=== PATIENT | male | born 1940 | race Caucasian/White ===

== ENCOUNTER → 2017-10-17 | Day surgery (SDC) | payer OTHER ==
[2017-10-11 14:55] LABS: BASOPHILS # (AUTO) 0.1 (0.0-0.1); BASOPHILS % 0.8 % (0.0-1.0); EOSINOPHILS # (AUTO) 0.4 (0.0-0.4); EOSINOPHILS % 4.9 % (0.0-6.0); HEMATOCRIT 39.2 % (38.2-49.6); HEMOGLOBIN 13.2 g/dL (14.0-18.0); LYMPHOCYTES # (AUTO) 2.4 (1.0-3.2); LYMPHOCYTES % 30.8 % (18.0-39.1); MEAN CORPUSCULAR HEMOGLOBIN 29.6 pg (28-32); MEAN CORPUSCULAR HGB CONC 33.7 g/dL (31-35); MEAN CORPUSCULAR VOLUME 87.9 fL (81-99); MONOCYTES # (AUTO) 0.7 (0.2-0.8); MONOCYTES % 9.3 % (4.4-11.3); NEUTROPHILS # (AUTO) 4.2 (2.1-6.9); NEUTROPHILS % 53.8 % (38.7-80.0); PLATELET COUNT 220 x10e3/uL (140-360); RED BLOOD COUNT 4.46 x10e6/uL (4.3-5.7); RED CELL DISTRIBUTION WIDTH 14.4 % (11.7-14.4)
[~2017-10-17] MED LIST: ALLOPURINOL300 MG PO; ASPIRIN CHEW81 MG PO; CENTRUM SILVER1 EAC3 PO; COMBIGAN EYE DRO5 ML OP; FENTANYL CITRATE/PF 100MCG/2 ML INJ ONE; FISH OIL 1,0001 EAC2 PO; GABAPENTIN400 MG PO; HYDROCODON-ACE1 EA11 PO; LACTULOSE20 GM/30 M PO; METAMUCIL POWD174 GM PO; METFORMIN HCL500 MG PO; MIDAZOLAM HCL 2 MG/2 ML VIAL ONE; NEXIUM40 MG PO; PANTOPRAZOLE SO40 MG PO; PROPOFOL IV EMULSION 10 MG/ML 50 ML VIAL ONE; SLEEP AID25 M1 PO; TIZANIDINE HCL4 M1 PO; TRAMADOL-ACETAMI1 EA PO; ZOCOR20 MG PO; [UNRECOGNIZED DRUG - OTHER]
== END | disposition home or self-care (01) ==
LOC: OR 08:25
PROVIDERS: ATTEND Internal Medicine Gastroenterology
DX: Z12.11 Encounter for screening for malignant neoplasm of colon (principal); Z86.010 Personal history of colon polyps; M19.90 Unspecified osteoarthritis, unspecified site; H91.90 Unspecified hearing loss, unspecified ear; E11.9 Type 2 diabetes mellitus without complications; Z01.810 Encounter for preprocedural cardiovascular examination; Z01.812 Encounter for preprocedural laboratory examination; Z79.82 Long term (current) use of aspirin; E78.5 Hyperlipidemia, unspecified; Z79.84 Long term (current) use of oral hypoglycemic drugs; Z68.32 Body mass index [BMI] 32.0-32.9, adult
CPT/HCPCS: 36415 ×2; 82948; 85025; 93005; G0104; J2250; 45378

== ENCOUNTER → 2017-10-31 | Day surgery (SDC) | payer OTHER | END | disposition home or self-care (01) | LOC: OR 10:29 | PROVIDERS: ATTEND Internal Medicine Gastroenterology | DX: D12.3 Benign neoplasm of transverse colon (principal); D12.5 Benign neoplasm of sigmoid colon; K63.5 Polyp of colon; K57.30 Diverticulosis of large intestine without perforation or abscess without bleeding; K64.8 Other hemorrhoids; K21.9 Gastro-esophageal reflux disease without esophagitis; E78.5 Hyperlipidemia, unspecified; E11.40 Type 2 diabetes mellitus with diabetic neuropathy, unspecified; Z79.84 Long term (current) use of oral hypoglycemic drugs; Z86.73 Personal history of transient ischemic attack (TIA), and cerebral infarction without residual deficits; Z88.1 Allergy status to other antibiotic agents; Z91.09 Other allergy status, other than to drugs and biological substances | CPT/HCPCS: 36415; 45384; 45385; 82948; J2250; 45378 ==

== ENCOUNTER 2018-06-18 05:23 | Observation (INO) | payer MEDICARE, OTHER ==
[2018-06-15 10:52] LABS: BASOPHILS # (AUTO) 0.1 (0.0-0.1); BASOPHILS % 0.8 % (0.0-1.0); EOSINOPHILS # (AUTO) 0.3 (0.0-0.4); EOSINOPHILS % 3.8 % (0.0-6.0); HEMATOCRIT 41.9 % (38.2-49.6); HEMOGLOBIN 14.2 g/dL (14.0-18.0); LYMPHOCYTES # (AUTO) 1.9 (1.0-3.2); LYMPHOCYTES % 26.5 % (18.0-39.1); MEAN CORPUSCULAR HEMOGLOBIN 29.8 pg (28-32); MEAN CORPUSCULAR HGB CONC 33.9 g/dL (31-35); MONOCYTES # (AUTO) 0.6 (0.2-0.8); MONOCYTES % 8.3 % (4.4-11.3); NEUTROPHILS # (AUTO) 4.2 (2.1-6.9); NEUTROPHILS % 59.9 % (38.7-80.0); PLATELET COUNT 235 x10e3/uL (140-360); RED BLOOD COUNT 4.76 x10e6/uL (4.3-5.7); RED CELL DISTRIBUTION WIDTH 14.4 % (11.7-14.4)
[2018-06-15 11:12] LABS: ANION GAP 14.8 mmol/L (8-16); BLOOD UREA NITROGEN 13 mg/dL (7-26); BUN/CREATININE RATIO 15 (6-25); CALCIUM 9.4 mg/dL (8.4-10.2); CARBON DIOXIDE 25 mmol/L (22-29); CHLORIDE 99 mmol/L (98-107); CREATININE, SERUM 0.85 mg/dL (0.72-1.25); EST GLOMERULAR FILTRATION RATE > 60 ML/MIN (60-); GLUCOSE 202 mg/dL (74-118); POTASSIUM 3.8 mmol/L (3.5-5.1); SODIUM 135 mmol/L (136-145)
--- NOTE | 2018-06-15 11:29 | Diagnostic Imaging Report ---
EXAMINATION: PA and lateral views of the chest. COMPARISON: None CLINICAL HISTORY: Preoperative evaluation, knee surgery DISCUSSION: Lines/tubes: None. Lungs: The lungs are well inflated and clear. No pneumonia or pulmonary edema. Pleura: No pleural effusion or pneumothorax. Heart and mediastinum: The cardiomediastinal silhouette is normal. Bones and soft tissues: No acute bony abnormalities. IMPRESSION: No acute cardiopulmonary abnormalities. Signed by: Dr. Catrachito Haq M.D. on 06/15/2018 11:25 AM
[~2018-06-18] VITALS: Ht 190.5 cm; Wt 124.3 kg
[~2018-06-18 05:23] MED LIST changes: +ALLOPURINOL PO; +ARICEPT5 MG PO; +ASPIR 8181 MG; -FENTANYL CITRATE/PF 100MCG/2 ML INJ ONE; +LASIX20 MG PO; -MIDAZOLAM HCL 2 MG/2 ML VIAL ONE; +MIRALAX; +NAPROXEN PO; +NIGHTTIME SLEEP50 M1; -PROPOFOL IV EMULSION 10 MG/ML 50 ML VIAL ONE; +SIMVASTATIN20 MG PO; +ULTRACET TABLE1 EACH; +[UNRECOGNIZED DRUG - OTHER] PO
--- OUTSIDE RECORDS SUMMARY | 2018-06-18 05:28 | XMS REPORT ---
Author [facility] Address Unknown Phone Unavailable Care Team Providers Care Heel Painter Name Role Phone STEPHANIE ARANA Unavailable Unavailable Problems This patient has no known problems. Allergies, Adverse Reactions, Alerts This patient has no known allergies or adverse reactions. Medications This patient has no known medications. Results Test Description Test Time Test Comments Text Results Atomic Results Result Comments CHEST 2 VIEWS 2018-06-15 11:24:00 [facility] [address] [address] Patient Name: MONA SUÁREZ MR #: [id number] : 1940 Age/Sex: 77/M Req #: [id number] Adm Physician: Ordered by: STEPHANIE ARANA MD Report #: [id number] Location: OR Room/Bed: Procedure: [id number] DX/CHEST 2 VIEWS Exam Date: 06/15/18 Exam Time: 1110 REPORT STATUS: Signed EXAMINATION: PA and lateral views of the chest. COMPAR NANCI: None CLINICAL HISTORY: Preoperative evaluation, knee surgery DISCUSSION: Lines/tubes: None. Lungs: The lungs are well inflated and clear. No pneumonia or pulmonary edema. Pleura: No pleural effusion or pneumothorax. Heart and mediastinum: The cardiomediastinal silhouette is normal. Bones and soft tissues: No acute bony abnormalities. IMPRESSION: No acute cardiopulmonary abnormalities. Signed by: Dr. Benita White M.D. on 06/15/2018 11:25 AM Dictated By: BENITA WHITE MD 1125 Transcribed By: DAYSI on 06/15/18 1125 COPY TO: STEPHANIE ARANA MD
[2018-06-18] MEDS ORDERED: CELECOXIB 200 MG CAP ONE (06:09)
[2018-06-18] MEDS ORDERED: DEXAMETHASONE SOD PHOS 10 MG/1 ML VIAL ONE (06:09)
[2018-06-18] MEDS ORDERED: GABAPENTIN 300 MG CAP ONE (06:10)
[2018-06-18] MEDS ORDERED: CEFAZOLIN SOD 2 GM/D5W 50ML 50 ML IV ONE (06:10)
[2018-06-18] MEDS ORDERED: TRANEXAMIC ACID 1,000 MG/10 ML ML ONE (06:16)
[2018-06-18] MEDS ORDERED: BACITRACIN 50,000 UNIT VIAL ONE (06:16)
[2018-06-18] MEDS ORDERED: FENTANYL CITRATE/PF 100MCG/2 ML INJ ONE ×2 (07:08→10:06)
[2018-06-18] MEDS ORDERED: ROPIVACAINE 246.25 MG, EPINEPHRINE HCL 1:1000 1ML 0.5 MG, CLONIDINE HCL 0.08 MG, KETORO... INJ ONE ×5 (07:30)
[2018-06-18] MEDS ORDERED: VANCOMYCIN HCL 500 MG ONE (08:12)
[2018-06-18] MEDS ORDERED: SODIUM CHLORIDE 0.9% 500ML 500 ML ONE (08:13)
[2018-06-18] MEDS ORDERED: SODIUM CHLORIDE 0.9% 1000ML 1,000 ML IV SCH (09:05)
[2018-06-18] MEDS ORDERED: ACETAMINOPHEN 650 MG SUPP PR PRN (09:15)
[2018-06-18] MEDS ORDERED: DOCUSATE SODIUM 100 MG CAP PO PRN (09:15)
[2018-06-18] MEDS ORDERED: ONDANSETRON HCL INJ 2MG/ML 2ML 2 MG/ML VIAL IV PRN (09:15)
[2018-06-18] MEDS ORDERED: DIPHENHYDRAMINE HCL INJ 50 MG/ML VIAL IM/IV PRN (09:15)
[2018-06-18] MEDS ORDERED: PROMETHAZINE HCL (IM) 25 MG/ML VIAL IM PRN (09:15)
[2018-06-18] MEDS ORDERED: HYDROCODONE/APAP 5MG-325MG TAB PO PRN (09:15)
[2018-06-18] MEDS ORDERED: MEPERIDINE HCL INJ 25 MG/ML VIAL ONE (09:23)
--- NOTE | 2018-06-18 10:13 | Diagnostic Imaging Report ---
Right knee radiographs- 2 views. History: Post operative radiographs status post right knee surgery. Findings: Portable radiographs. Status post total right knee arthroplasty with prosthetic components in anatomic alignment. Overlying subcutaneous emphysema and surgical skin issac are present. Knee joint effusion with air fluid level. IMPRESSION: Status post right total knee arthroplasty in anatomic position with post operative findings. Signed by: Dr. Odilon Cronin MD on 06/18/2018 10:10 AM
--- NOTE | 2018-06-18 10:13 | Operative Report ---
DATE OF PROCEDURE: June 18, 2018 PATIENT COORDINATOR FRONT DESK: Thomas Barrett PA-C The patient was brought to the operating room for induction of anesthesia. Throughout this case, my PA's assistance was necessary for retraction of soft tissue and positioning of the extremity. This allows for efficient and technically successful execution of the operation and is considered medically necessary. PREOPERATIVE DIAGNOSIS: Osteoarthritis, right knee. POSTOPERATIVE DIAGNOSIS: Osteoarthritis, right knee. PROCEDURE: Right total knee arthroplasty. INDICATIONS: The patient is a 77-year-old gentleman who has long-standing osteoarthritis of his right knee. He has failed conservative management and would now like to proceed with a right total knee replacement. The risks and benefits of the procedure have been discussed at length. The added challenges due to his size and weight of 270 pounds have been explained. He states he understands and wishes to proceed. DESCRIPTION OF PROCEDURE: The patient brought to the operating room and placed under general anesthetic. He received a regional block, prophylactic antibiotics and tranexamic acid in the holding area. His right lower extremity was prepped and draped in a sterile manner. A preoperative time out was performed. An anterior approach with a medial parapatellar arthrotomy was performed. A large joint effusion was evacuated from the knee. Soft-tissue releases were performed to bring the knee up into flexion with the patella everted. The knee was quite tight. He had an approximate 5-degree flexion contracture prior to the surgery. Marginal osteophytes and meniscal remnants were removed. The cruciate ligaments were sacrificed. A [employer] posterior stabilized knee system was used throughout the case. Once the proximal tibia was adequately exposed, an extramedullary cutting guide was used to resect the proximal tibia. The tibial baseplate was a size number 7. The central fin punch was impacted, and attention was directed towards the distal femur. An intramedullary cutting guide was used to resect the distal femur in 6 degrees of valgus and rotation referencing off of a combination of landmarks including [place] line, the epicondylar axis and the posterior condyles. The femoral component was also a size number 7. The anterior, posterior and notch cuts were made. Trial reductions were performed. A 9-mm posterior stabilized tibial insert provided appropriate soft-tissue balancing in full extension and 90 degrees of flexion. The patella was resurfaced with a 35-mm x 9-mm patellar button. The thickness was checked before and after and was right at 26 mm. Patellar tracking remained somewhat laterally subluxed. A lateral retinacular release was necessary. This improved tracking dramatically. The trial implants were then all removed. A 100 mL premixed pericapsular FLOR injection was placed into the surrounding soft tissue. The knee was thoroughly irrigated with a shower-tip pulsatile lavage and a spray bottle with polymyxin and vancomycin spray. The components were cemented into place using a single mix of high-viscosity Simplex cement preloaded with antibiotics. Care was taken to remove all extravasated cement. The wound was further irrigated with a shower-tip pulsatile lavage while the cement cured. The arthrotomy was then closed with interrupted #1 Ethibond. The knee was put through flexion and extension to ensure a secure closure. The skin was closed with subcuticular Vicryl and issac. A sterile bandage was applied. The patient was extubated and transported to the recovery room in stable condition. Blood loss was minimal. All needle and sponge counts were correct. Job#: [id number]
[2018-06-18] MEDS: KETOROLAC TROMETHAMINE 30 MG/ML VIAL IV PRN (10:55)
[2018-06-18] MEDS ORDERED: KETOROLAC TROMETHAMINE 30 MG/ML VIAL ONE (10:55)
[2018-06-18] MEDS ORDERED: MORPHINE SULFATE INJ 4 MG/ML INJ 1ML ONE (11:07)
[2018-06-18] MEDS ORDERED: HYDROMORPHONE 2MG/ML 2 MG/ML ML ONE (11:26)
[2018-06-18] MEDS ORDERED: ACETAMINOPHEN 1000 MG/100 ML IV SCH (12:00)
[2018-06-18 13:02] VITALS: BP 180/79
[2018-06-18 14:03] VITALS: BP 184/74
[2018-06-18] MEDS: CEFAZOLIN SOD 1 GM/NS 50ML 50 ML IV SCH ×2 (15:00→22:00)
[2018-06-18] MEDS: ASPIRIN 325 MG TAB PO SCH (16:45)
[2018-06-18] MEDS: CELECOXIB 200 MG CAP PO SCH (16:45)
[2018-06-18] MEDS ORDERED: CELECOXIB 100 MG CAP PO SCH (17:00)
[2018-06-18] MEDS ORDERED: LIDOCAINE HCL 2% LOCAL INJ 5 ML SDV VIAL INJ ONE (18:10)
[2018-06-18] MEDS ORDERED: SEVOFLURANE INHAL SOLN 250 ML PEN BTL ONE (18:10)
[2018-06-18] MEDS ORDERED: ONDANSETRON HCL INJ 2MG/ML 2ML 2 MG/ML VIAL ONE (18:10)
[2018-06-18] MEDS ORDERED: HYDRALAZINE HCL 20 MG/ML VIAL ONE (18:10)
[2018-06-18] MEDS ORDERED: PROPOFOL IV EMULSION 10 MG/ML 20 ML VIAL ONE (18:10)
[2018-06-18] MEDS ORDERED: LIDOCAINE HCL 2% JELLY 5 ML TUBE ONE (18:10)
--- NOTE | 2018-06-18 18:22 | NUR ---
DR. BRENNAN ANSWERING SERVICE CALLED FOR MEDICAL MANAGEMENT CONSULTATION AND PRN ORDERS FOR BP.
[2018-06-18] MEDS ORDERED: TIZANIDINE HCL 4 MG TAB PO PRN (18:45)
[2018-06-18] MEDS ORDERED: LIDOCAINE 2%/ EPINEPHRINE 20ML MDV ONE (18:47)
[2018-06-18] MEDS ORDERED: ROPIVACAINE 0.5% 5 MG/ML 30 ML SDV ONE (18:47)
[2018-06-18 20:00] VITALS: BP 134/60
[2018-06-18] MEDS ORDERED: ZOLPIDEM TARTRATE 5 MG TAB PO PRN (21:00)
[2018-06-18] MEDS: ACETAMINOPHEN 1000 MG/100 ML IV SCH (21:45)
[2018-06-18] MEDS: BRIMONIDINE/TIMOLOL (OPTH SOLN 5 ML DRPETTE OP SCH (22:00)
[2018-06-18] MEDS: SIMVASTATIN 20 MG TAB PO SCH (22:00)
[2018-06-18] MEDS: GABAPENTIN 400 MG CAP PO SCH (22:00)
[2018-06-19] VITALS: BP 120/51
[2018-06-19] MEDS: ACETAMINOPHEN 1000 MG/100 ML IV SCH ×2 (03:00→05:40)
[2018-06-19 04:00] VITALS: BP 139/60
--- NOTE | 2018-06-19 05:45 | NUR ---
ON CPM 60 AT THIS TIME.
[2018-06-19] MEDS: CEFAZOLIN SOD 1 GM/NS 50ML 50 ML IV SCH (06:01)
[2018-06-19 06:31] LABS: HEMATOCRIT 32.9 % (38.2-49.6); HEMOGLOBIN 11.1 g/dL (14.0-18.0)
--- NOTE | 2018-06-19 07:18 | NUR ---
Rcvd patient in report this am. Patient is asleep in bed at this time. Patient in CPM. NO c/o pain
[2018-06-19 08:00] VITALS: BP 166/73
[2018-06-19] MEDS: PANTOPRAZOLE SOD 40 MG TABEC PO SCH ×2 (08:23→20:30)
[2018-06-19] MEDS: GABAPENTIN 400 MG CAP PO SCH ×4 (08:24→20:30)
[2018-06-19] MEDS: ASPIRIN 325 MG TAB PO SCH ×2 (08:24→17:32)
[2018-06-19] MEDS: CELECOXIB 200 MG CAP PO SCH ×2 (08:24→17:32)
[2018-06-19] MEDS: METFORMIN HCL 500 MG TAB PO SCH ×2 (08:24→17:32)
[2018-06-19] MEDS: FUROSEMIDE 20 MG TAB PO SCH (08:24)
[2018-06-19] MEDS: DONEPEZIL HCL 5 MG TAB PO SCH (08:24)
[2018-06-19] MEDS ORDERED: ASPIRIN 81 MG CHEW TAB PO SCH (09:00)
[2018-06-19] MEDS: BRIMONIDINE/TIMOLOL (OPTH SOLN 5 ML DRPETTE OP SCH ×2 (09:01→20:30)
[2018-06-19] MEDS: HYDROCODONE/APAP 7.5MG-325MG 1 EA TAB PO PRN ×2 (09:01→13:14)
[2018-06-19] MEDS ORDERED: ACETAMINOPHEN 1000 MG/100 ML IV PRN (09:15)
[2018-06-19] MEDS ORDERED: ASPIRIN325 MG PO (10:07)
[2018-06-19] MEDS: KETOROLAC TROMETHAMINE 30 MG/ML VIAL IV PRN ×2 (10:51→20:35)
--- NOTE | 2018-06-19 11:19 | NUR ---
CASE MANAGEMENT INITIAL ASSESSMENT Operations Technician to bedside to discuss plan of care with patient/family. CM/SW role and care transitions discussed. Anticipated discharge plan discussed along with duration of care. CM/SW discussed patients right to make decisions in care. CM/SW work hours given. Patient lives: with [place] Admit/Transfer: from PACU; came for planned procedure Hospital/ER visits since last admit: none POA/Emergency contact: [place] Alcocer [phone] (cell), (home) Current/Previous Home Health: none PCP/Follow-up Care: Dr. Powell - PCP; has follow up with Dr. Adler (ortho) in 1 week Current/Previous DME: none; was independent Medications (referring to index hospitalization or the first time you were in the hospital) a. Were changes made in your medications when you were in the hospital on [date of index hospitalization]? n/a b. Did you understand the changes? n/a c. Were you able to obtain your new medications right away? n/a d. Were you able to take your medications like the doctor wanted you to? n/a e. Did the hospital give you an accurate, easy to understand list of medications when you left? n/a Scale of 1-10 how comfortable does patient feel with disease management in outpatient settin Other Services: none Employment Status: retired Areas of Concerns: knee replacement; weak, does not think he is able to go home yet. Pt stated it took 3 people to assist him up today. Referral Needs: home health Education Needs: medical management, physical therapy IMM/HANEY given and signed (if applicable): LYNDON explained to pt. He verbalized understanding. Signed copy in chart. Copy to pt. Goal for discharge: Home CM/SW left business card at the bedside with contact information. Name and number was also written on the patients whiteboard. Patient verbalized understanding of discussion. CM will follow-up with ongoing discharge and transition of care needs. DC plans pre-arranged by Dr. Adler's office as follows: [facility] - P [phone], F [phone]. DME with [facility] - P [phone]. Spoke with Lyndon in office. She stated that [facility] has been approved for DME. [employer] who coordinates delivery will contact pt's for delivery of CPM and 3-in-1 commode. Choice letter was obtained for both companies. Signed copy in chart. Copy to pt.
--- NOTE | 2018-06-19 11:30 | NUR ---
Spoke with pt's nurse AUSTIN Day, who stated that pt is unsafe for discharge at this time. She is waiting to hear back from Dr. Adler.
[2018-06-19 12:19] VITALS: BP_SYST 166; BP_SYST 176; BP_DIAS 73
--- NOTE | 2018-06-19 14:00 | NUR ---
Spoke with Dr. Adler regarding patient transferring and being unsafe today to discharge. MD agreed to keep the patient another day and reassess tomorrow
--- NOTE | 2018-06-19 14:05 | NUR ---
Visit made by the Spiritual Care Department Pastoral Visitor, Sissy Fink. PV provided pastoral presence, prayer, hospitality, and supportive listening. Pastoral Visitor informed pt/family of the scope of Health Insurance Agent Services and availability. SANDHYA BERGER Grinder Set Up Operator Surface Spiritual Care Department O: [phone] Pager: [phone] ([phone] number calling from)
--- NOTE | 2018-06-19 16:09 | NUR ---
Patient placed in CPM at this time at 65 degrees. Patient tolerating well at this time.
[2018-06-19 17:06] VITALS: BP 188/77
[2018-06-19 20:00] VITALS: BP 186/77
[2018-06-19] MEDS: SIMVASTATIN 20 MG TAB PO SCH (21:00)
[2018-06-20] VITALS (7 sets, daily range): BP systolic 145–198; BP diastolic 63–79
--- NOTE | 2018-06-20 05:46 | NUR ---
PLACED ON CMP 70 AT THIS TIME.
[2018-06-20 06:29] LABS: HEMATOCRIT 33.1 % (38.2-49.6); HEMOGLOBIN 10.8 g/dL (14.0-18.0)
[2018-06-20] MEDS: BRIMONIDINE/TIMOLOL (OPTH SOLN 5 ML DRPETTE OP SCH ×2 (08:47→21:08)
[2018-06-20] MEDS: METFORMIN HCL 500 MG TAB PO SCH ×2 (08:47→18:29)
[2018-06-20] MEDS: DONEPEZIL HCL 5 MG TAB PO SCH (08:48)
[2018-06-20] MEDS: ASPIRIN 325 MG TAB PO SCH ×2 (08:49→18:29)
[2018-06-20] MEDS: CELECOXIB 200 MG CAP PO SCH ×2 (08:49→18:29)
[2018-06-20] MEDS: GABAPENTIN 400 MG CAP PO SCH ×4 (08:50→21:08)
[2018-06-20] MEDS: FUROSEMIDE 20 MG TAB PO SCH (08:50)
[2018-06-20] MEDS: PANTOPRAZOLE SOD 40 MG TABEC PO SCH (08:51)
--- NOTE | 2018-06-20 11:00 | NUR ---
Pt cleared to discharge home for ortho standpoint. Pt was given RW from hospital. CM called and spoke to Veronika at [facility]. Informed her of discharge today. She is going to check on auth status and call me back. Clinical faxed to [facility]. P [phone], F [phone]. Also called [facility] and informed Lyndon that pt is discharging today. [employer] will reach out to pt's for delivery of CPM and 3-in-1 commode.
--- NOTE | 2018-06-20 13:38 | NUR ---
Spoke with Veronika at [facility]. Stated auth is good to go. They will be out to see pt tomorrow for therapy.
[2018-06-20] MEDS ORDERED: MOBIC7.5 MG PO (15:30)
[2018-06-20] MEDS ORDERED: SENNA LAXATIVE1 EACH PO (15:32)
[2018-06-20] MEDS ORDERED: NORCO 7.5-3251 EACH PO (15:33)
--- NOTE | 2018-06-20 16:05 | NUR ---
PATIENT'S FAMILY VOICED CONCERNS REGARDING THE PATIENT BEING ABLE TO GET UP, THEY STATED THAT THE PATIENT'S IS UNABLE TO HELP THE PATIENT OUT OF BED OR A CHAIR, HE CAN NOT GO HOME, SPOKE TO DEBRA THE ORTHOPEDIC PA FOR DR. ARANA, HE STATED THAT [facility] IS UNSAFE DUE TO INFECTION RISK, NOTIFIED THE FAMILY OF THE PHYSICIAN ACCOUNTING BOOKKEEPER'S RESPONSE, ATTEMPTED TO GET THE PATIENT TO STAND TO TRANSFER TO WHEELCHAIR, PATIENT WAS UNABLE TO STAND TO TRANSFER TO THE WHEELCHAIR, CALL DR. ARANA AT TIME 1648, DR. ARANA STATED THAT HE WILL COME SEE THE PATIENT.
--- NOTE | 2018-06-20 17:20 | NUR ---
DR ARANA AT BEDSIDE SPEAKING WITH PATIENT AND FAMILY RE: DISCHARGE, PT INFORMED MD " HE FEELS HE HAS NEW ONSET OF WEAKNESS, AND IS UNABLE TO GET OUT OF BED". PT'S DAUGHTER UPSET SCREAMING AT MD STATING " MY MOTHER CANNOT PHYSICALLY HANDLE HIM AT HOME AND HE WILL FALL". MD ORDERED CT HEAD. WILL CONTINUE TO MONITOR
--- NOTE | 2018-06-20 17:21 | NUR ---
dr vázquez spoke with dr mclean re: pt discharge, awaiting ct results and md approval of discharge
--- NOTE | 2018-06-20 18:00 | NUR ---
FAMILY UPSET WITH MD AND ASKED TO SPEAK WITH CHARGE NURSE RE: MD, CHARGE NURSE NOTIFIED.
--- NOTE | 2018-06-20 18:00 | NUR ---
paged dr mclean re: cancel of dc order awaiting call back
--- NOTE | 2018-06-20 19:05 | NUR ---
RECEIVED PATIENT IN BED WITH FAMILY MEMBER AT BEDSIDE. ORIENTED AND CONVERSANT. NO COMPLAINTS AT THIS TIME.
--- NOTE | 2018-06-20 19:05 | NUR ---
AT TIME 1600, REVIEWED DISCHARGE INSTRUCTIONS WITH PATIENT'S AND SHE SIGNED THE DISCHARGE PAPERS, PATIENT'S HAS THE THE DISCHARGE PRESCRIPTIONS AND DISCHARGE PAPERS.
--- NOTE | 2018-06-20 19:51 | NUR ---
spoke with dr mclean, informed nurse to cancel discharge and order snf evaluation.
--- NOTE | 2018-06-20 20:04 | Diagnostic Imaging Report ---
History:New onset weakness Comparison studies: None Technique: Axial images were obtained from the skull base to the vertex. Coronal and sagittal images reconstructed from the axial data. Dose modulation, iterative reconstruction, and/or weight based adjustment of the mA/kV was utilized to reduce the radiation dose to as low as reasonably achievable. Intravenous contrast: None Findings: Scalp/skull: No abnormalities. Extra-axial spaces: No masses. No fluid collections. Brain sulci: Moderately prominent. Ventricles: Moderate compensatory dilatation. No hydrocephalus. Parenchyma: Fall hypodensities in the supratentorial white matter are small vessel ischemic changes. No masses, hemorrhage, acute or chronic cortical vascular insults. Sellar/suprasellar region: No abnormalities. Craniocervical junction: Patent foramen magnum. No Chiari one malformation. Incidental findings: Subtle atherosclerotic calcifications in the carotid siphons . Impression: No acute abnormalities. Chronic findings: 1. Moderate generalized volume loss. 2. Mild supratentorial white matter small vessel ischemic changes. Signed by: Dr. Julio Castaneda M.D. on 06/20/2018 8:01 PM
[2018-06-20] MEDS: SIMVASTATIN 20 MG TAB PO SCH (21:08)
--- NOTE | 2018-06-20 21:16 | NUR ---
PLACED ON CPM AT 70
[2018-06-21] VITALS: BP 142/66
[2018-06-21 00:49] VITALS: BP 142/66
[2018-06-21 04:00] VITALS: BP 171/76
--- NOTE | 2018-06-21 06:50 | NUR ---
BEDSIDE WALKING ROUNDS COMPLETE, PATIENT AWAKE, ALERT AND ORIENTED, PATIENT'S SPOUSE AND DAUGHTER AT BEDSIDE, NO DISTRESS NOTED, DISCUSSED PLAN OF CARE WITH PATIENT.
--- NOTE | 2018-06-21 07:00 | NUR ---
BEDSIDE ROUNDS COMPLETE NO DISTRESS NOTED, DENIES PAIN AT THIS TIME UPDATED ON POC VOICED UNDERSTANDING, CALL LIGHT IN REACH WILL CONTINUE TO MONITOR
--- NOTE | 2018-06-21 07:03 | NUR ---
REPORT GIVEN TO ONCOMING NURSE.
[2018-06-21 08:18] VITALS: BP 190/84
[2018-06-21] MEDS: METFORMIN HCL 500 MG TAB PO SCH (08:26)
[2018-06-21] MEDS: DONEPEZIL HCL 5 MG TAB PO SCH (08:27)
[2018-06-21] MEDS: ASPIRIN 325 MG TAB PO SCH (08:27)
[2018-06-21] MEDS: GABAPENTIN 400 MG CAP PO SCH (08:28)
[2018-06-21] MEDS: CELECOXIB 200 MG CAP PO SCH (08:28)
[2018-06-21] MEDS: FUROSEMIDE 20 MG TAB PO SCH (08:28)
[2018-06-21] MEDS: PANTOPRAZOLE SOD 40 MG TABEC PO SCH (08:34)
[2018-06-21] MEDS: BRIMONIDINE/TIMOLOL (OPTH SOLN 5 ML DRPETTE OP SCH (08:42)
[2018-06-21 08:56] VITALS: BP 190/84
[2018-06-21] MEDS ORDERED: NEBIVOLOL 10 MG TAB PO SCH (09:00)
--- NOTE | 2018-06-21 10:22 | NUR ---
PATIENT HAS REDNESS BEHIND RIGHT KNEE, PATIENT AMBULATED TO THE BATHROOM WITH A WALKER, RECEIVED A SHOWER, THEN WALKED WITH WALKER BACK TO BED.
[2018-06-21] MEDS ORDERED: BYSTOLIC10 MG PO (12:21)
--- NOTE | 2018-06-21 13:54 | NUR ---
Received call from pt's daughter asking to speak with case management. Pt's and daughter expressed some concerns, wanted to speak with management/administration. Discussed pt's family concern with Eulalia Bowman, vice president of nursing/patient advocate. She will come talk to family. Addendum: 06/21/18 at 1359 by Rebekah Castellano CM Spoke with family at 11:00am
--- NOTE | 2018-07-17 10:59 | Discharge Summary ---
CHIEF COMPLAINT: Right knee pain. HISTORY OF PRESENT ILLNESS: This patient is a 77-year-old male, who complains of right knee pain for many years. He has tried multiple forms of conservative management. His x-rays are consistent with end-stage osteoarthritis of the right knee. The treatment was discussed. The patient would like to proceed with more definitive intervention. The risks and benefits of a right total knee replacement were explained. The patient states he understands and wishes to proceed. HOSPITAL COURSE: The patient underwent a right total knee replacement without complications. He was then transferred to the recovery room and then to floor in stable condition. He initially progressed nicely with physical therapy and was able to go almost 100 feet. He was cleared from PT's perspective. When attempting to discharge the patient, the patient started complaining of global weakness. There were no clear signs of a cerebrovascular event. He had a CT scan of the head to be sure. This was negative for any CVA. He then started to progress better with physical therapy again. Some of this was attributed to his early dementia. Ultimately, he was able to discharge home on postop day #3. PRINCIPAL DIAGNOSIS: Osteoarthritis, right knee. PRINCIPAL PROCEDURE: Right total knee arthroplasty. DISCHARGE INSTRUCTIONS: The patient was discharged home with home health and physical therapy arranged. He is to be weightbearing as tolerated with rolling walker. He is to resume his home medications as directed. He is to take aspirin twice a day for thromboprophylaxis. He is to follow up in our office in 8-10 days. Dictated by Thomas Barrett PA-C MD NGHIA Riggs/RINAL /[id number]
== END 2018-06-21 12:58 | disposition home health service (06) ==
LOC: OR 05:23 → PACU V 12:10 → MED/SURG 12:36
PROVIDERS: ADMIT Specialist; ATTEND Specialist
DX: M17.11 Unilateral primary osteoarthritis, right knee (principal); M16.0 Bilateral primary osteoarthritis of hip; E11.9 Type 2 diabetes mellitus without complications; F03.90 Unspecified dementia, unspecified severity, without behavioral disturbance, psychotic disturbance, mood disturbance, and anxiety; Z90.49 Acquired absence of other specified parts of digestive tract; Z91.048 Other nonmedicinal substance allergy status; Z88.1 Allergy status to other antibiotic agents; Z01.810 Encounter for preprocedural cardiovascular examination; Z01.812 Encounter for preprocedural laboratory examination; Z01.811 Encounter for preprocedural respiratory examination; Z80.9 Family history of malignant neoplasm, unspecified; Z79.84 Long term (current) use of oral hypoglycemic drugs; Z83.3 Family history of diabetes mellitus
CPT/HCPCS: 27447; 36415 ×5; 70450; 71046; 73560; 80048; 82948 ×3; 85014 ×2; 85018 ×2; 85025; 86850; 86900; 86920; 93005; 97139; 97162; 97530 ×4; C1713 ×2; G0378 ×4; J0131 ×2; J0171; J0360; J0690 ×3; J1100; J1170; J1885 ×2; J2001 ×3; J2175; J2270; J2405; J2704; J2795; J3370; J7030; J7040; S0164 ×3

== ENCOUNTER 2021-07-15 10:26 | Inpatient (IN) | payer MEDICARE, OTHER ==
[~2021-07-15] VITALS: Ht 190.5 cm; Wt 145.1 kg
[~2021-07-15 10:26] MED LIST changes: +ASPIRIN325 MG PO; +BYSTOLIC10 MG PO; +MOBIC7.5 MG PO; +NORCO 7.5-3251 EACH PO; +SENNA LAXATIVE1 EACH PO
[2021-07-15 11:00] LABS: BASOPHILS # (AUTO) 0.1 (0.0-0.1); BASOPHILS % 0.7 % (0.0-1.0); EOSINOPHILS # (AUTO) 0.2 (0.0-0.4); EOSINOPHILS % 2.8 % (0.0-6.0); HEMATOCRIT 30.2 % (38.2-49.6); HEMOGLOBIN 9.5 g/dL (14.0-18.0); LYMPHOCYTES # (AUTO) 1.7 (1.0-3.2); LYMPHOCYTES % 22.6 % (18.0-39.1); MEAN CORPUSCULAR HGB CONC 31.5 g/dL (31-35); MEAN CORPUSCULAR VOLUME 82.5 fL (81-99); MONOCYTES # (AUTO) 0.6 (0.2-0.8); MONOCYTES % 7.6 % (4.4-11.3); NEUTROPHILS # (AUTO) 4.9 (2.1-6.9); NEUTROPHILS % 65.1 % (38.7-80.0); PLATELET COUNT 274 x10e3/uL (140-360); RED BLOOD COUNT 3.66 x10e6/uL (4.3-5.7); RED CELL DISTRIBUTION WIDTH 19.7 % (11.7-14.4)
[2021-07-15 11:23] LABS: INR 0.94; PROTHROMBIN TIME 13.4 seconds (11.9-14.5)
[2021-07-15 11:24] LABS: PARTIAL THROMBOPLASTIN TIME 29.5 seconds (23.8-35.5)
[2021-07-15] MEDS ORDERED: IOPAMIDOL 370 MG/ML 200 ML INFUS..BTL INJ ONE (11:29)
[2021-07-15 11:33] LABS: ALBUMIN 3.2 g/dL (3.5-5.0); ALBUMIN/GLOBULIN RATIO 0.7 (0.8-2.0); CREATININE, SERUM 1.11 mg/dL (0.72-1.25); MAGNESIUM 2.1 MG/DL (1.3-2.1)
[2021-07-15 11:39] LABS: CREATINE KINASE MB 1.1 ng/mL (0-5.0)
[2021-07-15] MEDS ORDERED: DOCUSATE SODIUM 100 MG CAP PO PRN (12:30)
[2021-07-15] MEDS ORDERED: ONDANSETRON HCL INJ 2MG/ML 2ML 2 MG/ML VIAL IV PRN ×2 (12:30→13:30)
[2021-07-15] MEDS ORDERED: ACETAMINOPHEN 325 MG TAB PO PRN (12:30)
[2021-07-15] MEDS ORDERED: TIZANIDINE HCL 4 MG TAB PO PRN (12:30)
[2021-07-15] MEDS: GABAPENTIN 400 MG CAP PO SCH ×2 (13:00→17:19)
[2021-07-15 14:48] VITALS: BP 172/77
[2021-07-15 15:02] VITALS: BP 172/77
[2021-07-15] MEDS ORDERED: SERTRALINE HCL25 MG PO (15:26)
[2021-07-15] MEDS ORDERED: LYRICA150 MG PO (15:26)
[2021-07-15] MEDS ORDERED: IRBESARTAN75 MG PO (15:26)
[2021-07-15 16:00] VITALS: BP 166/73
[2021-07-15] MEDS ORDERED: BRIMONIDINE/TIMOLOL (OPTH SOLN 5 ML DRPETTE OP SCH (17:00)
[2021-07-15] MEDS ORDERED: MELOXICAM 7.5 MG TAB PO SCH (17:00)
[2021-07-15] MEDS: OYST-CAL-D 500MG TABLET PO SCH ×2 (17:18→21:12)
[2021-07-15] MEDS ORDERED: DEXTROSE 50% SYRINGE 50 ML IV PRN (19:00)
[2021-07-15 19:16] LABS: CREATINE KINASE MB 1.1 ng/mL (0-5.0)
[2021-07-15 20:00] VITALS: BP 141/78
[2021-07-15] MEDS: BRIMONIDINE/TIMOLOL (OPTH SOLN 5 ML DRPETTE OP SCH (21:00)
[2021-07-15] MEDS: INSULIN LISPRO 100 UNIT/1 ML 3ML VIAL SQ SCH (21:12)
[2021-07-15] MEDS: SIMVASTATIN 20 MG TAB PO SCH (21:12)
[2021-07-15] MEDS ORDERED: NAMENDA10 MG PO (22:28)
[2021-07-15] MEDS ORDERED: ELDERBERRY-VIT1 EACH (22:28)
[2021-07-15] MEDS ORDERED: ALLOPURINOL300 MG PO (22:28)
[2021-07-15] MEDS ORDERED: FLOMAX0.4 MG PO (22:28)
[2021-07-16] VITALS (8 sets, daily range): BP systolic 95–158; BP diastolic 53–72
[2021-07-16] MEDS ORDERED: ZIPRASIDONE 20 MG VIAL IM PRN
[2021-07-16 02:21] LABS: CREATINE KINASE MB 0.6 ng/mL (0-5.0)
[2021-07-16 05:03] LABS: BASOPHILS % 0.5 % (0.0-1.0); EOSINOPHILS # (AUTO) 0.1 (0.0-0.4); EOSINOPHILS % 1.6 % (0.0-6.0); HEMATOCRIT 27.1 % (38.2-49.6); HEMOGLOBIN 8.5 g/dL (14.0-18.0); LYMPHOCYTES # (AUTO) 1.8 (1.0-3.2); LYMPHOCYTES % 23.9 % (18.0-39.1); MEAN CORPUSCULAR HEMOGLOBIN 25.9 pg (28-32); MEAN CORPUSCULAR HGB CONC 31.4 g/dL (31-35); MEAN CORPUSCULAR VOLUME 82.6 fL (81-99); MONOCYTES # (AUTO) 0.7 (0.2-0.8); MONOCYTES % 8.8 % (4.4-11.3); NEUTROPHILS # (AUTO) 4.9 (2.1-6.9); NEUTROPHILS % 64.5 % (38.7-80.0); PLATELET COUNT 246 x10e3/uL (140-360); RED BLOOD COUNT 3.28 x10e6/uL (4.3-5.7); RED CELL DISTRIBUTION WIDTH 19.2 % (11.7-14.4)
[2021-07-16 05:25] LABS: ALBUMIN 2.9 g/dL (3.5-5.0); ALBUMIN/GLOBULIN RATIO 0.7 (0.8-2.0); ANION GAP 12.7 mmol/L (8-16); CREATININE, SERUM 1.05 mg/dL (0.72-1.25); POTASSIUM 3.7 mmol/L (3.5-5.1)
[2021-07-16 05:54] LABS: CREATINE KINASE MB 0.5 ng/mL (0-5.0)
[2021-07-16] MEDS: INSULIN LISPRO 100 UNIT/1 ML 3ML VIAL SQ SCH ×4 (07:30→20:44)
[2021-07-16] MEDS ORDERED: HYDROCODONE/APAP 10MG-325MG TAB PO PRN (09:00)
[2021-07-16] MEDS ORDERED: DONEPEZIL HCL 5 MG TAB PO SCH (09:00)
[2021-07-16] MEDS: BRIMONIDINE/TIMOLOL (OPTH SOLN 5 ML DRPETTE OP SCH ×2 (09:00→20:32)
[2021-07-16] MEDS: IRBESARTAN 150 MG TAB PO SCH (09:15)
[2021-07-16] MEDS: PANTOPRAZOLE SOD 40 MG TABEC PO SCH (09:15)
[2021-07-16] MEDS: SERTRALINE HCL 50 MG TAB PO SCH (09:16)
[2021-07-16] MEDS: OYST-CAL-D 500MG TABLET PO SCH ×3 (09:16→20:32)
[2021-07-16] MEDS: FUROSEMIDE 20 MG TAB PO SCH (09:16)
[2021-07-16 09:51] LABS: THYROID STIMULATING HORMONE 2.947 uIU/mL (0.350-4.940)
[2021-07-16] MEDS: Morphine 2mg Syringe 2 MG/ML SYR IV PRN ×2 (11:30→12:10)
[2021-07-16] MEDS: ZIPRASIDONE 20 MG VIAL IM PRN (15:54)
[2021-07-16] MEDS: SIMVASTATIN 20 MG TAB PO SCH (20:32)
[2021-07-16] MEDS: DONEPEZIL HCL 5 MG TAB PO SCH (20:32)
[2021-07-17] VITALS (8 sets, daily range): BP systolic 131–167; BP diastolic 62–76
[2021-07-17] MEDS: SODIUM CHLORIDE 0.9% 1000ML 1,000 ML IV SCH ×4 (00:06→21:28)
[2021-07-17 06:16] LABS: BASOPHILS % 0.3 % (0.0-1.0); EOSINOPHILS # (AUTO) 0.2 (0.0-0.4); EOSINOPHILS % 1.9 % (0.0-6.0); HEMATOCRIT 26.6 % (38.2-49.6); HEMOGLOBIN 8.2 g/dL (14.0-18.0); LYMPHOCYTES # (AUTO) 1.7 (1.0-3.2); MEAN CORPUSCULAR HEMOGLOBIN 25.7 pg (28-32); MEAN CORPUSCULAR HGB CONC 30.8 g/dL (31-35); MEAN CORPUSCULAR VOLUME 83.4 fL (81-99); MONOCYTES % 10.2 % (4.4-11.3); NEUTROPHILS # (AUTO) 6.5 (2.1-6.9); PLATELET COUNT 252 x10e3/uL (140-360); RED BLOOD COUNT 3.19 x10e6/uL (4.3-5.7)
[2021-07-17 06:26] LABS: CREATININE, SERUM 0.95 mg/dL (0.72-1.25)
[2021-07-17] MEDS: PANTOPRAZOLE SOD 40 MG TABEC PO SCH (07:30)
[2021-07-17] MEDS: INSULIN LISPRO 100 UNIT/1 ML 3ML VIAL SQ SCH ×4 (07:30→21:29)
[2021-07-17] MEDS: IRBESARTAN 150 MG TAB PO SCH (08:31)
[2021-07-17] MEDS: FUROSEMIDE 20 MG TAB PO SCH (08:31)
[2021-07-17] MEDS: OYST-CAL-D 500MG TABLET PO SCH ×3 (08:32→21:28)
[2021-07-17] MEDS: SERTRALINE HCL 50 MG TAB PO SCH (08:32)
[2021-07-17] MEDS: BRIMONIDINE/TIMOLOL (OPTH SOLN 5 ML DRPETTE OP SCH ×2 (09:00→21:28)
[2021-07-17] MEDS ORDERED: ACETAMINOPHEN 1000 MG/100 ML 100 ML IV ONE (09:08)
[2021-07-17] MEDS ORDERED: ACETAMINOPHEN 1000 MG/100 ML IV PRN (10:15)
[2021-07-17] MEDS ORDERED: ONDANSETRON HCL INJ 2MG/ML 2ML 2 MG/ML VIAL IV PRN (10:15)
[2021-07-17] MEDS ORDERED: HYDROCODONE/APAP 5MG-325MG TAB PO PRN (10:15)
[2021-07-17] MEDS ORDERED: ONDANSETRON HCL INJ 2MG/ML 2ML 2 MG/ML VIAL ONE (12:33)
[2021-07-17] MEDS ORDERED: POVIDONE IODINE 0.05% 0.05 % ML PO ONE (12:33)
[2021-07-17] MEDS ORDERED: SEVOFLURANE INHAL SOLN 250 ML PEN BTL ONE (12:33)
[2021-07-17] MEDS ORDERED: PROPOFOL IV EMULSION 10 MG/ML 20 ML VIAL ONE (12:33)
[2021-07-17] MEDS ORDERED: DEXAMETHASONE SOD PHOS INJ 4 MG/ML SDV ONE (12:33)
[2021-07-17] MEDS ORDERED: LIDOCAINE HCL 2% LOCAL INJ 5 ML SDV VIAL INJ ONE (12:33)
[2021-07-17] MEDS: Cefazolin 1 GM in SODIUM CHLORIDE 0.9% 50ML 50 ML IV SCH ×2 (14:07→21:29)
[2021-07-17] MEDS: RIVAROXABAN 10 MG TABLET PO SCH (16:52)
[2021-07-17] MEDS: DONEPEZIL HCL 5 MG TAB PO SCH (21:28)
[2021-07-17] MEDS: SIMVASTATIN 20 MG TAB PO SCH (21:28)
[2021-07-18] VITALS (8 sets, daily range): BP systolic 131–156; BP diastolic 51–80
[2021-07-18 05:00] LABS: BASOPHILS % 0.1 % (0.0-1.0); EOSINOPHILS % 0.4 % (0.0-6.0); HEMATOCRIT 23.2 % (38.2-49.6); HEMOGLOBIN 7.3 g/dL (14.0-18.0); LYMPHOCYTES # (AUTO) 1.3 (1.0-3.2); LYMPHOCYTES % 15.4 % (18.0-39.1); MEAN CORPUSCULAR HEMOGLOBIN 26.2 pg (28-32); MEAN CORPUSCULAR HGB CONC 31.5 g/dL (31-35); MEAN CORPUSCULAR VOLUME 83.2 fL (81-99); MONOCYTES # (AUTO) 0.9 (0.2-0.8); MONOCYTES % 10.5 % (4.4-11.3); NEUTROPHILS # (AUTO) 6.2 (2.1-6.9); NEUTROPHILS % 73.1 % (38.7-80.0); PLATELET COUNT 223 x10e3/uL (140-360); RED BLOOD COUNT 2.79 x10e6/uL (4.3-5.7); RED CELL DISTRIBUTION WIDTH 18.6 % (11.7-14.4)
[2021-07-18] MEDS: Cefazolin 1 GM in SODIUM CHLORIDE 0.9% 50ML 50 ML IV SCH (05:05)
[2021-07-18 05:22] LABS: ANION GAP 11.1 mmol/L (8-16); CALCIUM 8.8 mg/dL (8.4-10.2); CREATININE, SERUM 0.88 mg/dL (0.72-1.25); POTASSIUM 4.1 mmol/L (3.5-5.1)
[2021-07-18] MEDS: SODIUM CHLORIDE 0.9% 1000ML 1,000 ML IV SCH ×2 (05:26→08:29)
[2021-07-18] MEDS: IRBESARTAN 150 MG TAB PO SCH (08:25)
[2021-07-18] MEDS: OYST-CAL-D 500MG TABLET PO SCH ×3 (08:28→21:15)
[2021-07-18] MEDS: FUROSEMIDE 20 MG TAB PO SCH (08:28)
[2021-07-18] MEDS: SERTRALINE HCL 50 MG TAB PO SCH (08:28)
[2021-07-18] MEDS: PANTOPRAZOLE SOD 40 MG TABEC PO SCH (08:29)
[2021-07-18] MEDS: BRIMONIDINE/TIMOLOL (OPTH SOLN 5 ML DRPETTE OP SCH ×2 (08:30→21:15)
[2021-07-18] MEDS: INSULIN LISPRO 100 UNIT/1 ML 3ML VIAL SQ SCH ×4 (09:21→21:15)
[2021-07-18] MEDS ORDERED: FUROSEMIDE INJ 10 MG/ML 2 ML VIAL IV PRN (10:00)
[2021-07-18] MEDS ORDERED: SODIUM CHLORIDE 0.9% 250ML 250 ML IV NR (10:00)
[2021-07-18] MEDS: IRON SUCROSE 100 MG in SODIUM CHLORIDE 0.9% 100 ML 100 ML IV SCH (12:02)
[2021-07-18] MEDS ORDERED: SODIUM CHLORIDE 0.9% 250ML 250 ML ONE (13:38)
[2021-07-18] MEDS: RIVAROXABAN 10 MG TABLET PO SCH (16:43)
[2021-07-18] MEDS: DONEPEZIL HCL 5 MG TAB PO SCH (21:15)
[2021-07-18] MEDS: SIMVASTATIN 20 MG TAB PO SCH (21:15)
[2021-07-18] MEDS: ZIPRASIDONE 20 MG VIAL IM PRN (22:45)
[2021-07-19] VITALS (8 sets, daily range): BP systolic 115–163; BP diastolic 42–70
[2021-07-19 06:01] LABS: HEMATOCRIT 28.7 % (38.2-49.6)
[2021-07-19] MEDS: PANTOPRAZOLE SOD 40 MG TABEC PO SCH (07:30)
[2021-07-19] MEDS: INSULIN LISPRO 100 UNIT/1 ML 3ML VIAL SQ SCH ×4 (07:30→21:40)
[2021-07-19] MEDS: IRBESARTAN 150 MG TAB PO SCH (09:00)
[2021-07-19] MEDS: BRIMONIDINE/TIMOLOL (OPTH SOLN 5 ML DRPETTE OP SCH ×2 (09:00→21:40)
[2021-07-19] MEDS: OYST-CAL-D 500MG TABLET PO SCH ×3 (09:00→21:40)
[2021-07-19] MEDS: FUROSEMIDE 20 MG TAB PO SCH (09:00)
[2021-07-19] MEDS: SERTRALINE HCL 50 MG TAB PO SCH (09:00)
[2021-07-19] MEDS: IRON SUCROSE 100 MG in SODIUM CHLORIDE 0.9% 100 ML 100 ML IV SCH (10:00)
[2021-07-19] MEDS ORDERED: ONDANSETRON HCL 4 MG ORAL DISINTEGRATING TAB PO PRN ×2 (11:15)
[2021-07-19] MEDS: RIVAROXABAN 10 MG TABLET PO SCH (17:00)
[2021-07-19] MEDS: DONEPEZIL HCL 5 MG TAB PO SCH (21:40)
[2021-07-19] MEDS: SIMVASTATIN 20 MG TAB PO SCH (21:40)
[2021-07-20] VITALS (8 sets, daily range): BP systolic 139–180; BP diastolic 50–74
[2021-07-20 05:27] LABS: BASOPHILS % 0.5 % (0.0-1.0); EOSINOPHILS # (AUTO) 0.2 (0.0-0.4); HEMATOCRIT 27.9 % (38.2-49.6); HEMOGLOBIN 9.1 g/dL (14.0-18.0); LYMPHOCYTES # (AUTO) 1.4 (1.0-3.2); LYMPHOCYTES % 18.8 % (18.0-39.1); MEAN CORPUSCULAR HGB CONC 32.6 g/dL (31-35); MEAN CORPUSCULAR VOLUME 82.8 fL (81-99); MONOCYTES # (AUTO) 0.6 (0.2-0.8); NEUTROPHILS # (AUTO) 5.3 (2.1-6.9); NEUTROPHILS % 69.6 % (38.7-80.0); PLATELET COUNT 246 x10e3/uL (140-360); RED BLOOD COUNT 3.37 x10e6/uL (4.3-5.7)
[2021-07-20 05:56] LABS: ANION GAP 10.6 mmol/L (8-16); CALCIUM 8.9 mg/dL (8.4-10.2); CREATININE, SERUM 0.79 mg/dL (0.72-1.25); POTASSIUM 3.6 mmol/L (3.5-5.1)
[2021-07-20] MEDS: PANTOPRAZOLE SOD 40 MG TABEC PO SCH (08:44)
[2021-07-20] MEDS: INSULIN LISPRO 100 UNIT/1 ML 3ML VIAL SQ SCH ×4 (08:46→21:50)
[2021-07-20] MEDS: IRBESARTAN 150 MG TAB PO SCH (08:47)
[2021-07-20] MEDS: IRON SUCROSE 100 MG in SODIUM CHLORIDE 0.9% 100 ML 100 ML IV SCH (08:48)
[2021-07-20] MEDS: OYST-CAL-D 500MG TABLET PO SCH ×3 (08:48→21:50)
[2021-07-20] MEDS: FUROSEMIDE 20 MG TAB PO SCH (08:48)
[2021-07-20] MEDS: SERTRALINE HCL 50 MG TAB PO SCH (08:48)
[2021-07-20] MEDS: BRIMONIDINE/TIMOLOL (OPTH SOLN 5 ML DRPETTE OP SCH ×2 (09:00→21:50)
[2021-07-20] MEDS: RIVAROXABAN 10 MG TABLET PO SCH (16:57)
[2021-07-20] MEDS: SIMVASTATIN 20 MG TAB PO SCH (21:50)
[2021-07-20] MEDS: DONEPEZIL HCL 5 MG TAB PO SCH (21:50)
[2021-07-21] VITALS: BP 157/88
[2021-07-21 04:00] VITALS: BP 140/86
[2021-07-21] MEDS: INSULIN LISPRO 100 UNIT/1 ML 3ML VIAL SQ SCH ×2 (07:30→11:30)
[2021-07-21 07:52] VITALS: BP 167/61
[2021-07-21 08:06] VITALS: BP 167/61
[2021-07-21] MEDS: PANTOPRAZOLE SOD 40 MG TABEC PO SCH (08:24)
[2021-07-21] MEDS: SERTRALINE HCL 50 MG TAB PO SCH (08:25)
[2021-07-21] MEDS: FUROSEMIDE 20 MG TAB PO SCH (08:25)
[2021-07-21] MEDS: BRIMONIDINE/TIMOLOL (OPTH SOLN 5 ML DRPETTE OP SCH (08:25)
[2021-07-21] MEDS: OYST-CAL-D 500MG TABLET PO SCH (08:25)
[2021-07-21] MEDS: IRBESARTAN 150 MG TAB PO SCH (08:25)
[2021-07-21 11:13] VITALS: BP 150/73
== END 2021-07-21 13:00 | DRG 481 ==
LOC: ER 10:36 → ERHOLD 11:23 → MED/SURG 14:29
PROVIDERS: ADMIT Internal Medicine; ATTEND Internal Medicine
PROC: 0QS734Z Reposition Left Upper Femur with Internal Fixation Device, Percutaneous Approach (ICD-10-PCS; principal; 2021-07-17 08:00)
PROC: 30233N1 Transfusion of Nonautologous Red Blood Cells into Peripheral Vein, Percutaneous Approach (ICD-10-PCS; 2021-07-18)
DX: S72.142A Displaced intertrochanteric fracture of left femur, initial encounter for closed fracture (principal); F02.81 Dementia in other diseases classified elsewhere, unspecified severity, with behavioral disturbance; G30.9 Alzheimer's disease, unspecified; I10 Essential (primary) hypertension; E78.5 Hyperlipidemia, unspecified; K21.9 Gastro-esophageal reflux disease without esophagitis; D53.9 Nutritional anemia, unspecified; I25.10 Atherosclerotic heart disease of native coronary artery without angina pectoris; E11.40 Type 2 diabetes mellitus with diabetic neuropathy, unspecified; W01.0XXA Fall on same level from slipping, tripping and stumbling without subsequent striking against object, initial encounter; Y92.013 Bedroom of single-family (private) house as the place of occurrence of the external cause; Y93.89 Activity, other specified; Y99.9 Unspecified external cause status; Z79.84 Long term (current) use of oral hypoglycemic drugs
CPT/HCPCS: 36415; 51700; 70450; 71045; 72125; 72170; 74176; 76000; 80048; 80053; 82550; 82553; 82607; 82746; 82948; 83540; 83735; 83880; 84443; 84466; 84484; 85014; 85018; 85025; 85610; 85730; 86850; 86900; 86920; 93005; 93306; 94799; 96372; 97139; 99251; 99284; J0690; J1100; J1756; J1940; J2001; J2270; J2405; J3486; J7030; J7050; P9016; Q9967; U0002

== ENCOUNTER 2021-07-27 14:12 | Inpatient (IN) | payer MEDICARE ==
[~2021-07-27] VITALS: Ht 190.5 cm; Wt 144.5 kg
[~2021-07-27 14:12] MED LIST changes: +ELDERBERRY-VIT1 EACH; +FLOMAX0.4 MG PO; +IRBESARTAN75 MG PO; +LYRICA150 MG PO; +NAMENDA10 MG PO; +SERTRALINE HCL25 MG PO
[2021-07-27] MEDS ORDERED: SODIUM CHLORIDE FLUSH 10 ML SYR INJ PRN (14:45)
[2021-07-27] MEDS ORDERED: SODIUM CHLORIDE 0.9% 1000ML 1,000 ML IV SCH (14:45)
[2021-07-27 14:47] LABS: BASOPHILS # (AUTO) 0.1 (0.0-0.1); BASOPHILS % 0.5 % (0.0-1.0); EOSINOPHILS # (AUTO) 0.3 (0.0-0.4); EOSINOPHILS % 2.7 % (0.0-6.0); HEMATOCRIT 31.7 % (38.2-49.6); HEMOGLOBIN 9.8 g/dL (14.0-18.0); LYMPHOCYTES # (AUTO) 1.2 (1.0-3.2); LYMPHOCYTES % 11.3 % (18.0-39.1); MEAN CORPUSCULAR HEMOGLOBIN 26.8 pg (28-32); MEAN CORPUSCULAR HGB CONC 30.9 g/dL (31-35); MEAN CORPUSCULAR VOLUME 86.8 fL (81-99); MONOCYTES # (AUTO) 0.6 (0.2-0.8); NEUTROPHILS % 78.5 % (38.7-80.0); PLATELET COUNT 337 x10e3/uL (140-360); RED BLOOD COUNT 3.65 x10e6/uL (4.3-5.7); RED CELL DISTRIBUTION WIDTH 19.2 % (11.7-14.4)
[2021-07-27 14:55] LABS: CLARITY,URINE SL CLOUDY (CLEAR); COLOR,URINE YELLOW (YELLOW); LEUKOCYTE ESTERASE ,URINE TRACE (NEGATIVE); NITRITE,URINE POSITIVE (NEGATIVE)
[2021-07-27 14:56] LABS: KETONES,URINE NEGATIVE (NEGATIVE); PROTEIN,URINE DIPSTICK TRACE (NEGATIVE); URINE UROBILINOGEN >=8 mg/dL (0.2 - 1)
[2021-07-27 15:07] LABS: BACTERIA,URINE MANY /HPF; RBC,URINE 0-5 /HPF (0-5)
[2021-07-27 15:19] LABS: INR 1.35; PARTIAL THROMBOPLASTIN TIME 32.7 seconds (23.8-35.5); PROTHROMBIN TIME 17.8 seconds (11.9-14.5)
[2021-07-27 15:26] LABS: ALBUMIN 2.3 g/dL (3.5-5.0); ALBUMIN/GLOBULIN RATIO 0.5 (0.8-2.0); ANION GAP 11.5 mmol/L (8-16); CALCIUM 9.1 mg/dL (8.4-10.2); CREATININE, SERUM 0.95 mg/dL (0.72-1.25); POTASSIUM 3.5 mmol/L (3.5-5.1)
[2021-07-27] MEDS ORDERED: CEFTRIAXONE 1 GM in SODIUM CHLORIDE 0.9% 50ML 50 ML IV ONE (15:30)
[2021-07-27 15:32] LABS: CREATINE KINASE MB 0.6 ng/mL (0-5.0)
[2021-07-27] MEDS ORDERED: CEFTRIAXONE 1 GM VIAL IM ONE (17:45)
[2021-07-27] MEDS: SODIUM CHLORIDE 0.9% 1000ML 1,000 ML IV SCH (18:34)
[2021-07-27] MEDS: ALBUTEROL SULF 0.083% NEB SOLN 3 ML NEB NEB SCH ×2 (18:45→22:57)
[2021-07-27] MEDS ORDERED: ONDANSETRON HCL INJ 2MG/ML 2ML 2 MG/ML VIAL IV PRN (20:00)
[2021-07-27] MEDS ORDERED: ACETAMINOPHEN 325 MG TAB PO PRN (20:00)
[2021-07-27 20:11] LABS: CHOL/HDL RATIO 5.3 (3.9-4.7)
[2021-07-27 20:40] VITALS: BP 181/67
[2021-07-27 23:16] VITALS: BP 110/65
[2021-07-27 23:46] VITALS: BP 181/67
[2021-07-28] VITALS (7 sets, daily range): BP systolic 148–178; BP diastolic 63–93
[2021-07-28] MEDS: METOPROLOL TARTRATE INJ 1 MG/ML VIAL IV PRN ×2 (00:50→22:28)
[2021-07-28] MEDS: ALBUTEROL SULF 0.083% NEB SOLN 3 ML NEB NEB SCH ×6 (02:38→23:00)
[2021-07-28] MEDS: SODIUM CHLORIDE 0.9% 1000ML 1,000 ML IV SCH (03:29)
[2021-07-28 05:52] LABS: BASOPHILS % 0.5 % (0.0-1.0); EOSINOPHILS # (AUTO) 0.2 (0.0-0.4); EOSINOPHILS % 2.1 % (0.0-6.0); HEMATOCRIT 30.2 % (38.2-49.6); HEMOGLOBIN 9.4 g/dL (14.0-18.0); LYMPHOCYTES # (AUTO) 1.1 (1.0-3.2); MEAN CORPUSCULAR HGB CONC 31.1 g/dL (31-35); MEAN CORPUSCULAR VOLUME 86.8 fL (81-99); MONOCYTES # (AUTO) 0.6 (0.2-0.8); MONOCYTES % 6.6 % (4.4-11.3); NEUTROPHILS # (AUTO) 6.8 (2.1-6.9); NEUTROPHILS % 77.4 % (38.7-80.0); PLATELET COUNT 422 x10e3/uL (140-360); RED BLOOD COUNT 3.48 x10e6/uL (4.3-5.7); RED CELL DISTRIBUTION WIDTH 18.7 % (11.7-14.4)
[2021-07-28 06:44] LABS: CREATINE KINASE MB 0.6 ng/mL (0-5.0)
[2021-07-28] MEDS ORDERED: TAMSULOSIN HCL 0.4 MG CAP PO SCH (09:00)
[2021-07-28] MEDS ORDERED: CEFTRIAXONE 1 GM in SODIUM CHLORIDE 0.9% 50ML 50 ML IV SCH (09:00)
[2021-07-28] MEDS: ALLOPURINOL 300 MG TAB PO SCH ×2 (09:25→16:52)
[2021-07-28] MEDS: MEMANTINE 10 MG TAB PO SCH ×2 (09:25→16:52)
[2021-07-28] MEDS ORDERED: ZITHROMAX500 MG PO (09:44)
[2021-07-28] MEDS ORDERED: CEPHALEXIN500 MG PO (09:44)
[2021-07-28] MEDS ORDERED: ADULT WAL-TUSS118 ML PO (09:44)
[2021-07-28 15:11] LABS: CREATINE KINASE MB 0.7 ng/mL (0-5.0)
[2021-07-28] MEDS ORDERED: AZITHROMYCIN 250 MG TAB PO SCH (17:00)
[2021-07-28] MEDS: DONEPEZIL HCL 5 MG TAB PO SCH (22:27)
[2021-07-29] VITALS (9 sets, daily range): BP systolic 153–182; BP diastolic 62–75
[2021-07-29] MEDS: ALBUTEROL SULF 0.083% NEB SOLN 3 ML NEB NEB SCH ×2 (02:40→06:12)
[2021-07-29] MEDS: METOPROLOL TARTRATE INJ 1 MG/ML VIAL IV PRN ×3 (05:11→21:30)
[2021-07-29] MEDS ORDERED: ONDANSETRON HCL 4 MG ORAL DISINTEGRATING TAB PO PRN (09:00)
[2021-07-29] MEDS: MEROPENEM 500 MG in SODIUM CHLORIDE 0.9% 50ML 50 ML IV SCH ×2 (09:12→17:06)
[2021-07-29] MEDS ORDERED: ALBUTEROL/IPRATROPIUM 3 ML NEB NEB PRN (09:15)
[2021-07-29] MEDS: TAMSULOSIN HCL 0.4 MG CAP PO SCH ×2 (09:15→17:06)
[2021-07-29] MEDS ORDERED: HYDRALAZINE HCL 20 MG/ML VIAL IV PRN (09:15)
[2021-07-29] MEDS ORDERED: SENNOSIDES 8.6 MG TAB PO PRN ×2 (09:15→09:30)
[2021-07-29] MEDS ORDERED: MEROPENEM 500 MG VIAL ONE (09:26)
[2021-07-29] MEDS: ALLOPURINOL 300 MG TAB PO SCH ×2 (09:27→17:06)
[2021-07-29] MEDS: MEMANTINE 10 MG TAB PO SCH ×2 (09:27→17:06)
[2021-07-29] MEDS: ALBUTEROL/IPRATROPIUM 3 ML NEB NEB SCH ×3 (13:20→22:57)
[2021-07-29] MEDS: IRON SUCROSE 100 MG in SODIUM CHLORIDE 0.9% 100 ML 100 ML IV SCH (13:56)
[2021-07-29] MEDS: BRIMONIDINE/TIMOLOL (OPTH SOLN 5 ML DRPETTE OP SCH (17:00)
[2021-07-29] MEDS: RIVAROXABAN 10 MG TABLET PO SCH (17:06)
[2021-07-29] MEDS: DONEPEZIL HCL 5 MG TAB PO SCH (21:29)
[2021-07-29] MEDS: SIMVASTATIN 20 MG TAB PO SCH (21:29)
[2021-07-30] VITALS (7 sets, daily range): BP systolic 128–182; BP diastolic 57–87
[2021-07-30] MEDS: MEROPENEM 500 MG in SODIUM CHLORIDE 0.9% 50ML 50 ML IV SCH ×3 (01:29→17:20)
[2021-07-30 05:02] LABS: BASOPHILS # (AUTO) 0.1 (0.0-0.1); BASOPHILS % 0.9 % (0.0-1.0); EOSINOPHILS # (AUTO) 0.2 (0.0-0.4); EOSINOPHILS % 2.1 % (0.0-6.0); HEMATOCRIT 29.7 % (38.2-49.6); HEMOGLOBIN 9.3 g/dL (14.0-18.0); LYMPHOCYTES # (AUTO) 1.1 (1.0-3.2); LYMPHOCYTES % 15.9 % (18.0-39.1); MEAN CORPUSCULAR HEMOGLOBIN 26.8 pg (28-32); MEAN CORPUSCULAR HGB CONC 31.3 g/dL (31-35); MEAN CORPUSCULAR VOLUME 85.6 fL (81-99); MONOCYTES # (AUTO) 0.5 (0.2-0.8); NEUTROPHILS # (AUTO) 5.1 (2.1-6.9); NEUTROPHILS % 72.7 % (38.7-80.0); PLATELET COUNT 417 x10e3/uL (140-360); RED BLOOD COUNT 3.47 x10e6/uL (4.3-5.7); RED CELL DISTRIBUTION WIDTH 18.6 % (11.7-14.4)
[2021-07-30 05:53] LABS: ANION GAP 11.5 mmol/L (8-16); CALCIUM 9.2 mg/dL (8.4-10.2); CREATININE, SERUM 0.8 mg/dL (0.72-1.25); POTASSIUM 3.5 mmol/L (3.5-5.1)
[2021-07-30] MEDS: ALBUTEROL/IPRATROPIUM 3 ML NEB NEB SCH ×4 (07:31→22:46)
[2021-07-30] MEDS: BRIMONIDINE/TIMOLOL (OPTH SOLN 5 ML DRPETTE OP SCH ×2 (08:32→20:43)
[2021-07-30] MEDS: TAMSULOSIN HCL 0.4 MG CAP PO SCH ×2 (08:32→16:57)
[2021-07-30] MEDS: MEMANTINE 10 MG TAB PO SCH ×2 (08:32→16:57)
[2021-07-30] MEDS: SERTRALINE HCL 50 MG TAB PO SCH (08:32)
[2021-07-30] MEDS: ALLOPURINOL 300 MG TAB PO SCH ×2 (08:32→16:57)
[2021-07-30] MEDS: PANTOPRAZOLE SOD 40 MG TABEC PO SCH (08:32)
[2021-07-30] MEDS ORDERED: HYDRALAZINE HCL 25 MG TAB PO PRN (08:45)
[2021-07-30] MEDS: PREGABALIN 50 MG CAP PO SCH ×2 (09:33→16:57)
[2021-07-30] MEDS: NIFEDIPINE CR 30 MG TAB PO SCH (09:34)
[2021-07-30] MEDS: IRON SUCROSE 100 MG in SODIUM CHLORIDE 0.9% 100 ML 100 ML IV SCH (11:00)
[2021-07-30] MEDS ORDERED: SODIUM CHLORIDE 0.9% 250ML 250 ML ONE (16:13)
[2021-07-30] MEDS: RIVAROXABAN 10 MG TABLET PO SCH (16:57)
[2021-07-30] MEDS: SIMVASTATIN 20 MG TAB PO SCH (20:43)
[2021-07-30] MEDS: DONEPEZIL HCL 5 MG TAB PO SCH (20:43)
[2021-07-31] VITALS (8 sets, daily range): BP systolic 140–164; BP diastolic 52–76
[2021-07-31] MEDS: MEROPENEM 500 MG in SODIUM CHLORIDE 0.9% 50ML 50 ML IV SCH ×3 (01:39→17:39)
[2021-07-31] MEDS: ALBUTEROL/IPRATROPIUM 3 ML NEB NEB SCH ×3 (06:42→20:35)
[2021-07-31] MEDS: BRIMONIDINE/TIMOLOL (OPTH SOLN 5 ML DRPETTE OP SCH ×2 (08:12→20:47)
[2021-07-31] MEDS: PANTOPRAZOLE SOD 40 MG TABEC PO SCH (08:12)
[2021-07-31] MEDS: TAMSULOSIN HCL 0.4 MG CAP PO SCH ×2 (08:12→17:39)
[2021-07-31] MEDS: ALLOPURINOL 300 MG TAB PO SCH ×2 (08:12→17:39)
[2021-07-31] MEDS: NIFEDIPINE CR 30 MG TAB PO SCH (08:12)
[2021-07-31] MEDS: SERTRALINE HCL 50 MG TAB PO SCH (08:12)
[2021-07-31] MEDS: PREGABALIN 50 MG CAP PO SCH ×2 (08:12→17:39)
[2021-07-31] MEDS: MEMANTINE 10 MG TAB PO SCH ×2 (08:12→17:39)
[2021-07-31] MEDS ORDERED: NIFEDIPINE CR 30 MG TAB PO NR (09:45)
[2021-07-31] MEDS: IRON SUCROSE 100 MG in SODIUM CHLORIDE 0.9% 100 ML 100 ML IV SCH (10:32)
[2021-07-31] MEDS: RIVAROXABAN 10 MG TABLET PO SCH (17:39)
[2021-07-31] MEDS: TIZANIDINE HCL 4 MG TAB PO PRN (20:47)
[2021-07-31] MEDS: SIMVASTATIN 20 MG TAB PO SCH (20:47)
[2021-07-31] MEDS: HYDROCODONE/APAP 7.5MG-325MG 1 EA TAB PO PRN (20:47)
[2021-07-31] MEDS: DONEPEZIL HCL 5 MG TAB PO SCH (20:47)
[2021-08-01] VITALS (8 sets, daily range): BP systolic 95–157; BP diastolic 42–80
[2021-08-01] MEDS: ALBUTEROL/IPRATROPIUM 3 ML NEB NEB SCH ×5 (01:05→23:20)
[2021-08-01] MEDS: MEROPENEM 500 MG in SODIUM CHLORIDE 0.9% 50ML 50 ML IV SCH ×3 (03:02→17:29)
[2021-08-01 06:17] LABS: BASOPHILS # (AUTO) 0.1 (0.0-0.1); BASOPHILS % 0.7 % (0.0-1.0); EOSINOPHILS # (AUTO) 0.2 (0.0-0.4); EOSINOPHILS % 2.8 % (0.0-6.0); HEMATOCRIT 28.8 % (38.2-49.6); HEMOGLOBIN 8.9 g/dL (14.0-18.0); LYMPHOCYTES # (AUTO) 1.3 (1.0-3.2); LYMPHOCYTES % 19.4 % (18.0-39.1); MEAN CORPUSCULAR HGB CONC 30.9 g/dL (31-35); MEAN CORPUSCULAR VOLUME 87.3 fL (81-99); MONOCYTES # (AUTO) 0.6 (0.2-0.8); MONOCYTES % 8.3 % (4.4-11.3); NEUTROPHILS # (AUTO) 4.6 (2.1-6.9); NEUTROPHILS % 66.9 % (38.7-80.0); PLATELET COUNT 356 x10e3/uL (140-360); RED CELL DISTRIBUTION WIDTH 18.5 % (11.7-14.4)
[2021-08-01 06:44] LABS: ANION GAP 11.2 mmol/L (8-16); CALCIUM 8.6 mg/dL (8.4-10.2); CREATININE, SERUM 0.84 mg/dL (0.72-1.25); POTASSIUM 3.2 mmol/L (3.5-5.1)
[2021-08-01] MEDS: NIFEDIPINE CR 30 MG TAB PO SCH (07:57)
[2021-08-01] MEDS: PREGABALIN 50 MG CAP PO SCH ×2 (07:57→17:29)
[2021-08-01] MEDS: SERTRALINE HCL 50 MG TAB PO SCH (07:57)
[2021-08-01] MEDS: MEMANTINE 10 MG TAB PO SCH ×2 (07:57→17:29)
[2021-08-01] MEDS: BRIMONIDINE/TIMOLOL (OPTH SOLN 5 ML DRPETTE OP SCH ×2 (07:57→20:18)
[2021-08-01] MEDS: TAMSULOSIN HCL 0.4 MG CAP PO SCH ×2 (07:57→17:29)
[2021-08-01] MEDS: PANTOPRAZOLE SOD 40 MG TABEC PO SCH (07:57)
[2021-08-01] MEDS: ALLOPURINOL 300 MG TAB PO SCH ×2 (07:57→17:29)
[2021-08-01] MEDS: POTASSIUM CHLORIDE 10MEQ EA PO SCH ×2 (10:05→12:31)
[2021-08-01] MEDS: RIVAROXABAN 10 MG TABLET PO SCH (17:29)
[2021-08-01] MEDS: DONEPEZIL HCL 5 MG TAB PO SCH (20:18)
[2021-08-01] MEDS: HYDROCODONE/APAP 7.5MG-325MG 1 EA TAB PO PRN (20:18)
[2021-08-01] MEDS: SIMVASTATIN 20 MG TAB PO SCH (20:18)
[2021-08-01] MEDS: TIZANIDINE HCL 4 MG TAB PO PRN (20:19)
[2021-08-02] VITALS: BP 136/67
[2021-08-02] MEDS: MEROPENEM 500 MG in SODIUM CHLORIDE 0.9% 50ML 50 ML IV SCH ×2 (02:35→10:00)
[2021-08-02 04:00] VITALS: BP 132/76
[2021-08-02] MEDS: ALBUTEROL/IPRATROPIUM 3 ML NEB NEB SCH ×2 (06:47→12:00)
[2021-08-02 08:05] VITALS: BP 171/73
[2021-08-02 08:13] VITALS: BP 171/73
[2021-08-02] MEDS: TAMSULOSIN HCL 0.4 MG CAP PO SCH (08:17)
[2021-08-02] MEDS: PANTOPRAZOLE SOD 40 MG TABEC PO SCH (08:17)
[2021-08-02] MEDS: BRIMONIDINE/TIMOLOL (OPTH SOLN 5 ML DRPETTE OP SCH (08:17)
[2021-08-02] MEDS: PREGABALIN 50 MG CAP PO SCH (08:18)
[2021-08-02] MEDS: NIFEDIPINE CR 30 MG TAB PO SCH (08:18)
[2021-08-02] MEDS: MEMANTINE 10 MG TAB PO SCH (08:18)
[2021-08-02] MEDS: SERTRALINE HCL 50 MG TAB PO SCH (08:19)
[2021-08-02] MEDS: ALLOPURINOL 300 MG TAB PO SCH (08:19)
== END 2021-08-02 11:41 | DRG 177 ==
LOC: ER 14:28 → ERHOLD 17:55 → OBSVTOIN 19:53 → MED/SURG 20:03 → MED/SURG3 07-30 11:16
PROVIDERS: ADMIT Internal Medicine; ATTEND Internal Medicine
PROC: 02HV33Z Insertion of Infusion Device into Superior Vena Cava, Percutaneous Approach (ICD-10-PCS; principal; 2021-07-29)
DX: J69.0 Pneumonitis due to inhalation of food and vomit (principal); J96.00 Acute respiratory failure, unspecified whether with hypoxia or hypercapnia; G92.9 Unspecified toxic encephalopathy; N39.0 Urinary tract infection, site not specified; Z16.12 Extended spectrum beta lactamase (ESBL) resistance; F05 Delirium due to known physiological condition; F02.81 Dementia in other diseases classified elsewhere, unspecified severity, with behavioral disturbance; E11.42 Type 2 diabetes mellitus with diabetic polyneuropathy; I11.0 Hypertensive heart disease with heart failure; I50.9 Heart failure, unspecified; K21.9 Gastro-esophageal reflux disease without esophagitis; E78.5 Hyperlipidemia, unspecified; Z88.1 Allergy status to other antibiotic agents; Z91.048 Other nonmedicinal substance allergy status; Z96.642 Presence of left artificial hip joint; N40.1 Benign prostatic hyperplasia with lower urinary tract symptoms; R33.8 Other retention of urine; B96.20 Unspecified Escherichia coli [E. coli] as the cause of diseases classified elsewhere; G30.9 Alzheimer's disease, unspecified; T42.6X5A Adverse effect of other antiepileptic and sedative-hypnotic drugs, initial encounter; Z79.84 Long term (current) use of oral hypoglycemic drugs; D53.9 Nutritional anemia, unspecified; Z20.822 Contact with and (suspected) exposure to COVID-19
CPT/HCPCS: 36415; 36569; 70450; 71045; 74230; 80048; 80053; 80061; 81001; 82550; 82553; 82948; 83036; 84484; 85025; 85610; 85730; 87040; 87086; 87186; 93005; 94640; 94799; 97139; 99284; J0360; J0456; J0696; J1756; J2185; J7030; J7050; U0002